=== PATIENT | female | born 1950 | race Caucasian/White ===

== ENCOUNTER 2019-11-26 19:40 | Inpatient (IN) | payer OTHER ==
[~2019-11-26] VITALS: Ht 160 cm; Wt 70.8 kg
[~2019-11-26 19:40] MED LIST: ACETAMINOPHEN325 M1 PO; ALAVERT10 MG PO; ASPIRIN325 PO; BENAZEPRIL-HCT1 EAC1; FLEXERIL PO; HYDROCODON-ACE1 EACH PO; IBUPROFEN 800800 M1 PO; LANTUS SUBQ; NOVOLOG PEN SUBQ; Plavix 75 Mg Tab PO; SYNTHROID125 MCG; TOPROL 25 MG PO; ZOCOR 20 MG TAB20 M1 PO
[2019-11-26 19:42] VITALS: BP 159/87
[2019-11-26 20:40] LABS: ABSOLUTE NEUTROPHILS 6.1 thou/uL (1.4-8.2); BASOPHILS 1.1 % (0.0-2.0); EOSINOPHILS 3.1 % (0.0-3.0); HEMATOCRIT 39.2 % (37.0-47.0); HEMOGLOBIN 12.7 gm/dL (12.0-15.0); LYMPHOCYTES 19.4 % (24.0-44.0); MCH 27.9 pg (26.0-34.0); MCHC 32.5 g/dL (28.0-37.0); MONOCYTES 10.4 % (1.0-8.0); PLATELET COUNT 364 thou/uL (150-400); RBC 4.56 mil/uL (4.20-5.00); RDW 14.5 % (10.5-14.5); WBC 9.2 thou/uL (4.0-11.0)
[2019-11-26 20:46] LABS: CALCIUM 10.4 mg/dL (8.5-10.1); CREATININE 1.1 mg/dL (0.6-1.0); POTASSIUM 4.3 mmol/L (3.5-5.1)
[2019-11-26 20:50] LABS: URINE BILIRUBIN NEGATIVE (Negative); URINE BLOOD NEGATIVE (Negative); URINE CLARITY CLEAR; URINE COLOR YELLOW; URINE GLUCOSE-RANDOM* NEGATIVE (Negative); URINE KETONES NEGATIVE (Negative); URINE NITRITE-REFLEX NEGATIVE (Negative); URINE PROTEIN (DIPSTICK) NEGATIVE (Negative); URINE UROBILINOGEN 0.2 E.U./dl (0.2-1.0)
[2019-11-26 20:51] LABS: URINE LEUKOCYTES-REFLEX 1+ (Negative)
[2019-11-26 20:51] LABS: ALBUMIN 3.4 g/dL (3.4-5.0); TOTAL BILIRUBIN 0.7 mg/dL (0.2-1.0); TOTAL PROTEIN 7.5 g/dL (6.4-8.2)
[2019-11-26 21:04] LABS: CASTS None Seen /LPF (None Seen); CRYSTALS None Seen /LPF (None Seen); URINE WBC-REFLEX 0-5 Rare /HPF (0-5)
[2019-11-26 21:05] LABS: SQUAMOUS 0-3 Few /LPF (0-3); URINE RBC None Seen /HPF (0-2)
[2019-11-26 21:14] VITALS: BP 159/87
[2019-11-26 22:30] VITALS: BP 163/88
[2019-11-27] MEDS ORDERED: PROVENTIL HFA6.7 G1 INH (02:37)
[2019-11-27] MEDS ORDERED: NORVASC 2.5 MG2.5 M1 PO ×2 (02:38→02:39)
[2019-11-27] MEDS ORDERED: ASA81BEC PO (02:40)
[2019-11-27] MEDS ORDERED: CLONAZEPAM 0.50.5 M1 PO (02:41)
[2019-11-27] MEDS ORDERED: DULCOLAX STOOL100 M1 PO (02:42)
[2019-11-27] MEDS ORDERED: PLAVIX 75 MG TA75 MG PO (02:42)
[2019-11-27] MEDS ORDERED: DULCOLAX10 MG RECTAL (02:44)
[2019-11-27] MEDS ORDERED: ENALAPRIL MALEA20 MG PO (02:45)
[2019-11-27] MEDS ORDERED: LANTUS100 UNIT/M SUBQ (02:46)
[2019-11-27] MEDS ORDERED: LEVO-T125 MCG PO (02:49)
[2019-11-27] MEDS ORDERED: NORCO 5-325 TA1 EAC1 PO (02:50)
[2019-11-27] MEDS ORDERED: OLANZAPINE ODT5 MG PO (02:51)
[2019-11-27] MEDS ORDERED: TRAMADOL 50 MG50 MG PO (02:53)
--- NOTE | 2019-11-27 08:45 | EKG ---
[facility] [place] [address] ELECTROCARDIOGRAM REPORT Name: TEMO ROSE Room #: [facility] ADM IN M.R.#: [id number] Admission: 11/26/19 Attend Phys: Kevan Hutchison DO Discharge: Date of : 52 Report #: [id number] THIS REPORT FOR: cc: Luis Enrique Cedeño MD,Luis Enrique Hudson,Javy Dias MD [facility] ~ THIS REPORT FOR: //name// [facility] ED Test Date: 2019-11-26 Test Time: 20:46:36 Pat Name: TEMO ROSE Department: Room: [facility] Gender: F Environmental Health Safety Manager: NEYDA : 1950 Requested By: Raman Burrell Order Number: [id number] MD: Javy Hudson Measurements Intervals [place] Rate: 87 P: 17 IA: 177 QRS: 23 QRSD: 99 T: 39 QT: 371 QTc: 447 Interpretive Statements Sinus rhythm Poor R wave progression Compared to ECG 09/15/2011 06:46:31 Poor septal R wave progression is now present Electronically Signed On 11-27-2019 8:44:49 CDT by Javy Hudson [email or web address] <ELECTRONICALLY SIGNED> By: Javy Hudson MD, [facility] 11/27/19 0844 45 45 Javy Hudson MD, [facility] /EPI
[2019-11-27 09:06] VITALS: BP 139/87
[2019-11-27 11:31] VITALS: BP 139/87
[2019-11-27 19:34] VITALS: BP 141/76
[2019-11-28 07:00] LABS: FOLIC ACID 18.2 ng/mL (8.6-58.9)
[2019-11-28 19:53] VITALS: BP 125/80
[2019-11-29 02:06] LABS: GLYCOHEMOGLOBIN (HGB A1C) 5.8 % (4.8-5.6)
[2019-11-29 10:08] VITALS: BP 139/91
[2019-11-29 13:29] VITALS: BP 139/91
[2019-11-29 19:34] VITALS: BP 136/84
[2019-11-30 07:56] VITALS: BP 135/77
[2019-11-30 19:18] VITALS: BP 118/63
[2019-12-01 03:23] LABS: URINE BILIRUBIN NEGATIVE (Negative); URINE BLOOD NEGATIVE (Negative); URINE CLARITY CLEAR; URINE COLOR YELLOW; URINE GLUCOSE-RANDOM* NEGATIVE (Negative); URINE KETONES NEGATIVE (Negative); URINE LEUKOCYTES 3+ (Negative); URINE NITRITE NEGATIVE (Negative); URINE PROTEIN (DIPSTICK) NEGATIVE (Negative); URINE UROBILINOGEN 0.2 E.U./dl (0.2-1.0)
[2019-12-01 04:02] LABS: BACTERIA 1-9 Few /HPF (None Seen); CASTS None Seen /LPF (None Seen); CRYSTALS None Seen /LPF (None Seen); MUCUS None Seen strn/LPF (None Seen); RENAL EPITHELIAL CELLS 0-3 Few /LPF (None Seen); SQUAMOUS 0-3 Few /LPF (0-3); TRANSITIONAL EPITHEL CELL 4-10 Moderate /LPF (None Seen); URINE RBC None Seen /HPF (0-2)
[2019-12-01 08:21] VITALS: BP 136/82
[2019-12-01 10:18] LABS: ABSOLUTE NEUTROPHILS 5.6 thou/uL (1.4-8.2); BASOPHILS 1.3 % (0.0-2.0); EOSINOPHILS 3.1 % (0.0-3.0); HEMATOCRIT 38.2 % (37.0-47.0); HEMOGLOBIN 12.5 gm/dL (12.0-15.0); LYMPHOCYTES 12.5 % (24.0-44.0); MCH 27.9 pg (26.0-34.0); MCHC 32.7 g/dL (28.0-37.0); MCV 85.4 fL (80.0-100.0); MONOCYTES 9.5 % (1.0-8.0); PLATELET COUNT 336 thou/uL (150-400); POLYS 73.6 % (36.0-66.0); RBC 4.48 mil/uL (4.20-5.00); RDW 14.9 % (10.5-14.5); WBC 7.6 thou/uL (4.0-11.0)
[2019-12-01 19:45] VITALS: BP 111/65
[2019-12-01 19:57] VITALS: BP 116/61
[2019-12-01 22:00] VITALS: BP 116/61
[2019-12-02 09:06] VITALS: BP 121/71
[2019-12-02 11:19] VITALS: BP 121/71
[2019-12-02 20:04] VITALS: BP 105/61
[2019-12-02 22:00] VITALS: BP 105/61
[2019-12-03 07:35] VITALS: BP 105/63
[2019-12-03 20:30] VITALS: BP 105/63
[2019-12-04 11:35] VITALS: BP 136/82
[2019-12-04 19:40] VITALS: BP 136/65
[2019-12-04 22:00] VITALS: BP 136/65
[2019-12-05 09:20] VITALS: BP 115/75
[2019-12-05] MEDS ORDERED: OLANZAPINE ODT5 MG PO (18:56)
[2019-12-05 20:00] VITALS: BP 110/60
[2019-12-05 20:14] VITALS: BP 110/60
[2019-12-06 07:39] LABS: URINE BILIRUBIN NEGATIVE (Negative); URINE BLOOD NEGATIVE (Negative); URINE CLARITY CLEAR; URINE COLOR YELLOW; URINE GLUCOSE-RANDOM* NEGATIVE (Negative); URINE KETONES NEGATIVE (Negative); URINE NITRITE-REFLEX NEGATIVE (Negative); URINE PROTEIN (DIPSTICK) NEGATIVE (Negative); URINE UROBILINOGEN 0.2 E.U./dl (0.2-1.0)
[2019-12-06 07:43] LABS: URINE LEUKOCYTES-REFLEX 2+ (Negative)
[2019-12-06 08:56] LABS: CASTS None Seen /LPF (None Seen); CRYSTALS None Seen /LPF (None Seen); SQUAMOUS 4-10 Moderate /LPF (0-3); URINE RBC None Seen /HPF (0-2)
[2019-12-06 09:03] VITALS: BP 102/70
[2019-12-06] MEDS ORDERED: ZYVOX600 MG PO (10:59)
== END 2019-12-06 11:25 | DRG 884 ==
LOC: ER 19:40 → EROBS 21:02 → SBH 21:02
PROVIDERS: Emergency Medicine; Internal Medicine; Nurse Practitioner Family; Psychiatry & Neurology Psychiatry; ADMIT Psychiatry & Neurology Psychiatry; ATTEND Psychiatry & Neurology Psychiatry
DX: F03.91 Unspecified dementia, unspecified severity, with behavioral disturbance (principal); N39.0 Urinary tract infection, site not specified; I69.351 Hemiplegia and hemiparesis following cerebral infarction affecting right dominant side; I10 Essential (primary) hypertension; E11.9 Type 2 diabetes mellitus without complications; M54.9 Dorsalgia, unspecified; E03.9 Hypothyroidism, unspecified; J44.9 Chronic obstructive pulmonary disease, unspecified; Z66 Do not resuscitate; Z90.49 Acquired absence of other specified parts of digestive tract; Z88.2 Allergy status to sulfonamides; Z87.891 Personal history of nicotine dependence; Z79.82 Long term (current) use of aspirin; Z79.899 Other long term (current) drug therapy
CPT/HCPCS: 10880